=== PATIENT | male | born 2000 | race Caucasian/White ===

== ENCOUNTER 2020-10-10 12:22 | Emergency (ER) | payer SELFPAY ==
[~2020-10-10] VITALS: Ht 180.3 cm; Wt 107.7 kg
[2020-10-10 12:34] VITALS: TEMP 98.3
[2020-10-10 13:58] VITALS: BP 138/75; PULSE 79
== END 2020-10-10 14:00 | disposition home or self-care (01) ==
LOC: COL.ER 12:22
DX: U07.1 COVID-19 (principal)